=== PATIENT | female | born 1950 | race Caucasian/White ===

== ENCOUNTER → 2019-12-21 | Outpatient (CLI) | payer MEDICARE, BC ==
[~2019-12-21] MED LIST: ACET500T68 PO; APIX5TAB3 PO; CARV6.2541 PO; CHOL400T2 PO; CRESTOR10 MG PO; DULO30CA2 PO; GABA-586 PO; LISI10TA2 PO; MAGN250T10 PO; METF10007 PO; MULT-245 PO; OMEG10005 PO; POTA10TA12 PO; UBID200C32 PO
== END | disposition home or self-care (01) ==
LOC: LAB 08:30
PROVIDERS: ATTEND Registered Nurse
DX: Z11.59 Encounter for screening for other viral diseases (principal)
CPT/HCPCS: C9803; U0003

== ENCOUNTER → 2019-12-25 | Day surgery (SDC) | payer MEDICARE, BC ==
[~2019-12-25] MED LIST changes: +IV RINGERS SOLUTION,LACTATED 1,000 ML IV SCH; +ONDANSETRON PF 4 MG/2 ML VIAL. IV PRN; +PROPOFOL 10,000 MCG/ML (20ML) VIAL IV ONE
[2019-12-25 11:18] VITALS: BP 145/74
--- NOTE | 2019-12-26 14:09 | PATHOLOGY ---
[facility] Accession Number: [id number] . 01 Material submitted: . PART A: colon - TRANSVERSE POLYP. Modifiers: transverse PART B: rectum - RECTAL POLYP . 02 Diagnosis: A. Colon biopsies, transverse colon polyp: - Tubular adenoma. . B. Colorectal biopsy, rectal polyp: - Hyperplastic polyp. LBQ 12/26/2019 1213 Local . 02 Comment: There is no high grade dysplasia or evidence of malignancy. (JPM/db; 12/26/2019) . 02 Electronically signed: . Erasto Davis MD, Pathologist NPI- [id number] . 01 Gross description: . A. The specimen is received in formalin labeled "Clint, Lida, transverse polyp" and consists of multiple fragments of kim tissue measuring 0.4 x 0.3 x 0.2 cm in aggregate which are entirely submitted in A1. . B. The specimen is received in formalin labeled "Clint, Lida, rectal polyp" and consists of a fragment of pink-kim tissue measuring 0.3 x 0.3 x 0.3 cm which is entirely submitted in B1. ([facility]; 12/25/2019) JFQ/JFQ 12/25/2019 1919 Local . 02 Pathologist provided ICD-10: D12.3, K62.1 . 02 CPT . 651101, 192984 Specimen Comment: A courtesy copy of this report has been sent to [phone] Specimen Comment: [id number] Specimen Comment: Report sent to / DR GRIFFITHS Performed at: [address], [place], [place] [id number] MD Oscar Wilcox MD Phone: [phone] Performed at: 02 [facility] [address] [place], [place] [id number] MD Erasto Davis MD Phone: [phone]
== END ==
LOC: SURG 08:41
PROVIDERS: ATTEND Emergency Medicine
DX: Z12.11 Encounter for screening for malignant neoplasm of colon (principal); D12.2 Benign neoplasm of ascending colon; K62.1 Rectal polyp; F32.9 Major depressive disorder, single episode, unspecified; I10 Essential (primary) hypertension; E11.9 Type 2 diabetes mellitus without complications; K57.30 Diverticulosis of large intestine without perforation or abscess without bleeding; E66.9 Obesity, unspecified; Z68.35 Body mass index [BMI] 35.0-35.9, adult; Z90.49 Acquired absence of other specified parts of digestive tract; Z86.010 Personal history of colon polyps; Z98.890 Other specified postprocedural states; Z87.39 Personal history of other diseases of the musculoskeletal system and connective tissue; Z79.84 Long term (current) use of oral hypoglycemic drugs; Z90.710 Acquired absence of both cervix and uterus
CPT/HCPCS: 45380; 88305; J2704; J7120

== ENCOUNTER 2021-04-23 12:11 | Emergency (ER) | payer MEDICARE, BC ==
[~2021-04-23] VITALS: Ht 157.5 cm; Wt 101.2 kg
[~2021-04-23 12:11] MED LIST changes: -IV RINGERS SOLUTION,LACTATED 1,000 ML IV SCH; +LISI10TA16 PO; -LISI10TA2 PO; -ONDANSETRON PF 4 MG/2 ML VIAL. IV PRN; -PROPOFOL 10,000 MCG/ML (20ML) VIAL IV ONE
--- NOTE | 2021-04-23 12:29 | EKG ---
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
--- NOTE | 2021-04-23 12:50 | PHYS DOC ---
Past History Additional Past Medical Histor: PE, patella fx (PRUDENCE LAM APRN) Past Surgical History: Cholecystectomy, Hysterectomy, Knee Replacement, Other Additional Past Surgical Histo: cervical stenosis, cervical laminectomy, bladder suspension, (PRUDENCE LAM APRN) Alcohol Use: None (PRUDENCE LAM APRN) General Adult EDM: Chief Complaint: DIZZY/LIGHT HEADED HPI: HPI: Patient is a 70-year-old female who presents with dizziness. Patient states "I went to the doctor this morning because I have a UTI and while was there I was discussing with them my past history of bigeminy". "I was also feeling dizzy and short of breath when I go in and out of bigeminy". 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 Denies chest pain. Patient states "my in November and so sometimes I do not know if I am feeling bad because of grief or being sick". Patient is currently on Eliquis due to previous PE. Denies all other medical history. (PRUDENCE LAM APRN) Review of Systems: Review of Systems: ROS At least 10 ROS systems have been reviewed and are negative except as documented in the HPI. General: Negative except as outlined in HPI above. Skin: Negative except as outlined in HPI above. HEENT: Negative except as outlined in HPI above. Neck: Negative except as outlined in HPI above. Respiratory: Negative except as outlined in HPI above.. Cardiovascular: Negative except as outlined in HPI above. Abdomen: Negative except as outlined in HPI above. : Negative except as outlined in HPI above. Back/MSK: Negative except as outlined in HPI above. Neuro: Negative except as outlined in HPI above. Psych: Negative except as outlined in HPI above. 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 [] HENT: Normocephalic, atraumatic, bilateral external ears normal, oropharynx moist, no oral exudates, nose normal. [] Eyes: PERRLA, EOMI, conjunctiva normal, no discharge. [] Neck: Normal range of motion, no tenderness, supple, no stridor. [] Cardiovascular: PVCs, bigeminy, heart rate 73 bpm Lungs & Thorax: Bilateral breath sounds clear to auscultation [] Abdomen: Bowel sounds normal, soft, no tenderness, no masses, no pulsatile masses. [] Skin: Warm, dry, no erythema, no rash. [] Back: No tenderness, no CVA tenderness. [] Extremities: No tenderness, no cyanosis, no clubbing, ROM intact, no edema. [] Neurologic: Alert and oriented X 3, normal motor function, normal sensory function, no focal deficits noted. [] Psychologic: Affect normal, judgement normal, mood normal. [] (PRUDENCE LAM APRN) Current Patient Data: Vital Signs: Vital Signs Date Time Temp Pulse Resp B/P (MAP) Pulse Ox O2 Delivery O2 Flow Rate FiO2 04/23/21 12:23 98.3 72 18 128/55 (79) 99 Room Air (PRUDENCE LAM APRN) EKG: EKG: [] (PRUDENCE LAM APRN) Radiology/Procedures: Radiology/Procedures: [] (PRUDENCE LAM APRN) Heart Score: C/O Chest Pain: No Risk Factors: Risk Factors: DM, Current or recent (<one month) smoker, HTN, HLP, family history of CAD, obesity. Risk Scores: Score 0 - 3: 2.5% MACE over next 6 weeks - Discharge Home Score 4 - 6: 20.3% MACE over next 6 weeks - Admit for Clinical Observation Score 7 - 10: 72.7% MACE over next 6 weeks - Early Invasive Strategies (PRUDENCE LAM APRN) Course & Med Decision Making: Course & Med Decision Making Pertinent Labs and Imaging studies reviewed. (See chart for details) [] 70-year-old female presents with dizziness. Patient was at her PCP this morning to be treated for a UTI. Patient reports that she was discussing her having some dizziness and shortness of breath and past history of PVCs and bigeminy. Her PCP did an EKG which showed PVCs and bigeminy. Patient was brought in by EMS. Patient denies any chest pain. Denies nausea/vomiting/diarrhea. EKG shows sinus rhythm, PVCs, bigeminy. Patient denies dizziness or shortness of breath while in the ER. Patient's PVCs have resolved. Patient states she has been seen for the same problem in the past by cardiology. Patient reports has had the symptoms for years. UA is positive for infection. Patient prescribed Macrobid. D-dimer elevated. Patient is allergic to IV contrast. Patient is currently on Eliquis due to history of PEs. CTA is not indicated due to contrast allergy. Management would not change based on CTA results, due to patient already being on blood thinners. Discussed results with patient. Patient advised to follow- up with cardiology. Patient given strict return precautions patient is hemodynamically stable upon disposition. Still denying dizziness or shortness of breath at this time (PRUDENCE LAM APRN) Dragon Disclaimer: Dragon Disclaimer: This electronic medical record was generated, in whole or in part, using a voice recognition dictation system. (PRUDENCE LAM APRN) Attending Co-Sign The patient was seen and interviewed as well as examined at the bedside. The chart was reviewed. The case was discussed. Agree with the plan of care. (NINA ELIZABETH DO) Departure Departure: Impression: Primary Impression: Dizziness Additional Impressions: PVC (premature ventricular contraction) UTI (urinary tract infection) Qualified Codes: N30.00 - Acute cystitis without hematuria Disposition: HOME / SELF CARE / HOMELESS Condition: STABLE Referrals: RENZO GRIFFITHS MD (PCP) CHANTE CORTEZ MD Patient Instructions: Dizziness, Kblc-sh-Seky Additional Instructions: You were seen in the emergency room for dizziness, shortness of breath, PVCs. Your symptoms resolved while you were in the emergency room. Please follow-up with your primary care physician. I have also included a referral for cardiology. Please call them in the morning and make an appointment to be seen. Return to the emergency room with worsening symptoms or concerns. EMERGENCY DEPARTMENT GENERAL DISCHARGE INSTRUCTIONS Thank you for coming to [facility] (ED) today and trusting us with you care. We trust that you had a positivie experience in our Emergency Department. If you wish to speak to the department management, you may call the director at [phone]. YOUR FOLLOW UP INSTRUCTIONS ARE FOLLOWS: 1. Do you have a private Doctor? If you do not have a private doctor, please ask for a resource list of physicians or clinics that may be able to assist you with follow up care. 2. The Emergency Physician has interpreted your x-rays. The X-Ray specialist will also review them. If there is a change in the findings, you will be notified in 48 hours when at all possible. 3. A lab test or culture has been done, your results will be reviewed and you will be notified if you need a change in treatment. ADDITIONAL INSTRUCTIONS AND INFORMATION: 1. Your care today has been supervised by a physician who is specially trained in emergency care. Many problems require more than one evaluation for a complete diagnosis and treatment. We recommend that you schedule your follow up appointment as recommended to ensure complete treatment of you illness or injury. If you are unable to obtain follow up care and continue to have a problem, or if your condition worsens, we recommend that you return to the ED. 2. We are not able to safely determine your condition over the phone nor are we able to give sound medical advice over the phone. For these safety reasons, if you call for medical advice we will ask you to come to the ED for further evaluation. 3. If you have any questions regarding these discharge instructions please call the ED at [phone]. SAFETY INFORMATION: In the interest of safety, wellness, and injury prevention; we encourage you to wear your sealbelt, if you smoke; quite smoking, and we encourage family to use a protective helmet for bicycling and other sporting events that present an increased risk for head injury. IF YOUR SYMPTOMS WORSEN OR NEW SYMPTOMS DEVELOP, OR YOU HAVE CONCERNS ABOUT YOUR CONDITION; OR IF YOUR CONDITION WORSENS WHILE YOU ARE WAITING FOR YOUR FOLLOW UP APPOINT MENT; EITHER CONTACT YOUR PRIMARY CARE DOCTOR, THE PHYSICIAN WHOSE NAME AND NUMBER YOU WERE GIVEN, OR RETURN TO THE ED IMMEDIATELY. Scripts Sulfamethoxazole/Trimethoprim (BACTRIM DS TABLET) 1 Each Tablet 1 TAB PO BID for uti for 7 Days, #14 TAB 0 Refills Prov: PRUDENCE LAM APRN 04/23/21 Nitrofurantoin Monohyd/M-Cryst (MACROBID 100 MG CAPSULE) 100 Mg Capsule 100 CAP PO BID for UTI for 5 Days, #100 CAP Prov: PRUDENCE LAM APRN 04/23/21 PRUDENCE LAM APRN Apr 23, 2021 12:50 NINA ELIZABETH DO Apr 24, 2021 06:13
--- NOTE | 2021-04-23 12:50 | RAD ---
Single AP view of the chest. Comparison: None. Indication: Dizziness Findings: The heart is not enlarged. There is no pneumothorax or effusion. No air space or interstitial diseas e. Impression: 1. No acute cardiopulmonary process. Electronically signed by: Price Harper MD (04/23/2021 12:48 PM) [id number]
[2021-04-23] MEDS ORDERED: IV NORMAL SALINE 1,000ML 1,000 ML IV ONE (13:15)
[2021-04-23 13:35] LABS: BASO # 0.1 x10^3/uL (0.0-0.2); BASO % 1 % (0-3); EOS # 0.2 x10^3/uL (0.0-0.7); EOS % 2 % (0-3); HEMATOCRIT 37.7 % (36.0-47.0); HEMOGLOBIN 12.5 g/dL (12.0-15.5); LYMPH % 40 % (24-48); MEAN CORPUSCULAR HEMOGLOBIN 30 pg (25-35); MEAN CORPUSCULAR HGB CONC 33 g/dL (31-37); MEAN CORPUSCULAR VOLUME 90 fL (79-100); MONO # 1.1 x10^3/uL (0.0-1.1); MONO % 11 % (0-9); NEUT # 4.6 x10^3uL (1.8-7.7); NEUT % 46 % (31-73); PLATELET COUNT 205 x10^3/uL (140-400); RED CELL DISTRIBUTION WIDTH 14.1 % (11.5-14.5)
[2021-04-23 13:54] LABS: CALCIUM 9.2 mg/dL (8.5-10.1); CREATININE 0.9 mg/dL (0.6-1.0); GFR 61.9; POTASSIUM 4.8 mmol/L (3.5-5.1)
[2021-04-23 14:00] LABS: ALBUMIN 3.2 g/dL (3.4-5.0); ALBUMIN/GLOBULIN RATIO 0.9 (1.0-1.7); TOTAL BILIRUBIN 0.3 mg/dL (0.2-1.0); TOTAL PROTEIN 6.6 g/dL (6.4-8.2)
[2021-04-23 14:05] LABS: BACTERIA,URINE MOD /HPF (0-FEW); BILIRUBIN,URINE NEG (NEG); CLARITY,URINE HAZY; COLOR,URINE STRAW; GLUCOSE,URINE NEG (NEG); NITRITE,URINE NEG (NEG); SQUAMOUS EPITHELIAL CELL,UR MOD /LPF; UROBILINOGEN,URINE 0.2 mg/dL (0.2 mg/dL); WBC,URINE >40 /HPF (0-4)
[2021-04-23 14:06] LABS: RBC,URINE OCC /HPF (0-2)
[2021-04-23 14:29] VITALS: BP 149/99
[2021-04-23] MEDS ORDERED: IOHEXOL 350 MG/ML 100 ML VIAL. IV ONE (15:15)
[2021-04-23] MEDS ORDERED: NITR100C62 PO (15:21)
[2021-04-23] MEDS ORDERED: SULF1TAB24 PO (15:28)
== END 2021-04-23 15:47 | disposition home or self-care (01) ==
LOC: ER 12:11
DX: R42 Dizziness and giddiness (principal); N39.0 Urinary tract infection, site not specified; I49.3 Ventricular premature depolarization
CPT/HCPCS: 36415; 71045; 80053; 81001; 84484; 85025; 85379; 87086; 93005; 96360; 99285; J7030; 87077; 87186

== ENCOUNTER → 2021-04-27 | Outpatient (CLI) | payer MEDICARE, BC ==
[2021-04-23 14:29] VITALS: BP 149/99
[~2021-04-27] MED LIST changes: +NITR100C62 PO; +SULF1TAB24 PO
--- NOTE | 2021-04-27 15:43 | RAD ---
EXAM: Right lower extremity venous Doppler. HISTORY: Right lower extremity pain/swelling. COMPARISON: None. FINDINGS: Grayscale and Doppler analysis of the right lower extremity deep venous system was performe d with graded compression and augmentation. The common femoral, greater saphenous, superficial femora l, popliteal and calf veins were assessed. There is no evidence of deep venous thrombosis. IMPRESSION: 1. No evidence of deep venous thrombosis. Electronically signed by: Antonia Nice MD (04/27/2021 3:41 PM) [id number]
== END ==
LOC: US 13:13
PROVIDERS: ATTEND Specialist
DX: I87.1 Compression of vein (principal); M79.604 Pain in right leg
CPT/HCPCS: 93971

== ENCOUNTER → 2021-06-02 | Outpatient (CLI) | payer MEDICARE, BC ==
--- NOTE | 2021-06-02 13:09 | RAD ---
INDICATION: Screening for osteopenia/osteoporosis. Reason: screening / Spl. Instructions: / History : . Postmenopausal evaluation. COMPARISON: None. TECHNIQUE: Bone densitometry was performed through the lumbar spine and proximal femur. IMPRESSION: Lumbar Spine: BMD: 1.86 T-Score: 5.6 Range: Normal Proximal Femur: BMD: 0.98 T-Score: 0.2 Range: Normal World Health Organization Criteria for Bone Density: T-Score: > -1.0: Normal Range < -1.0 to -2.5: Osteopenic Range < -2.5: Osteoporotic Range Electronically signed by: Felipe Jaramillo MD (06/02/2021 1:06 PM) [id number]
--- NOTE | 2021-06-08 10:00 | RAD ---
BILATERAL DIGITAL SCREENING 2-D MAMMOGRAM INDICATION: Routine screening. COMPARISON: 04/11/2020 Interpretation was made using CAD. FINDINGS: Breast Density: There are scattered areas of fibroglandular density. RIGHT BREAST: No suspicious masses, calcifications or areas of architectural distortion are seen. LEFT BREAST: No suspicious masses, calcifications or areas of architectural distortion are seen. IMPRESSION: 1. No imaging evidence of malignancy. ASSESSMENT: BI-RADS 1: Negative. RECOMMENDATION: Routine annual screening mammogram. The facility will notify the patient of the results via mail. Patient information will be entered int o the mammography reminder system with a target recall date for the next mammogram. A reminder letter will be generated by the facility. Electronically signed by: Angus Hale MD (06/08/2021 9:58 AM) [id number]
== END ==
LOC: MAMMO 09:15
PROVIDERS: ATTEND Specialist
DX: Z12.31 Encounter for screening mammogram for malignant neoplasm of breast (principal); Z78.0 Asymptomatic menopausal state
CPT/HCPCS: 77067; 77080